=== PATIENT | male | born 1980 | race Caucasian/White ===

== ENCOUNTER 2023-09-28 07:37 | Emergency (ER) | payer OTHER ==
[2023-09-28 07:45] VITALS: RESP 18
[2023-09-28] MEDS: DEXAMETHASONE SOD PHOSPHATE 10 MG/ML 1 ML VIAL IM STA (08:10)
--- NOTE | 2023-09-28 08:18 | ED ---
ENT HPI - General Chief complaint: ENT Stated complaint: Allergies Time Seen by Provider: 09/28/23 07:46 Source: patient, family, RN notes reviewed Mode of arrival: ambulatory Limitations: no limitations - History of Present Illness Initial comments: This is a 43-year-old male who presents to the emergency department for problems with allergies. States that for the last couple of years he has had problems with sinus congestion and allergies around his eyes. He has been on Sudafed, Robitussin, and other [id number] allergy medications without much relief. He also followed up at [facility] and was given a prescription for antibiotics and nasal spray. States that he continues to have no relief. Denies any chest pain or shortness of breath. He does have nasal drainage in conjunction with the congestion. He was unable to get an appointment with his primary care provider until next month and is unsure what else he can take to help with the symptoms. - Related Data Previous Rx's Medication Instructions Recorded Cromolyn Sodium [NasalCrom] 1 spray NASAL QID #26 ml 09/28/23 Fexofenadine/Pseudoephedrine 1 tab PO BID #30 tab 09/28/23 [Laurel-D 12 Hour Tablet] Allergies Allergy/AdvReac Type Severity Reaction Status Date / Time No Known Allergies Allergy Verified 09/28/23 07:44 Review of Systems ROS Statement: Those systems with pertinent positive or pertinent negative responses have been documented in the HPI. ROS Other: All systems not noted in ROS Statement are negative. Past Medical History Past Medical History: No Reported History Past Surgical History: No Surgical Hx Reported Past Psychological History: No Psychological Hx Reported Smoking Status: Current some day smoker Past Alcohol Use History: Occasional Past Drug Use History: Marijuana General Exam Limitations: no limitations General appearance: alert, in no apparent distress Head exam: Present: atraumatic, normocephalic, normal inspection Eye exam: Present: normal appearance, PERRL, EOMI. Absent: scleral icterus, conjunctival injection, periorbital swelling ENT exam: Present: normal exam, normal oropharynx, mucous membranes moist, TM's normal bilaterally, normal external ear exam Respiratory exam: Present: normal lung sounds bilaterally. Absent: respiratory distress, wheezes, rales, rhonchi, stridor Cardiovascular Exam: Present: regular rate, normal rhythm, normal heart sounds. Absent: systolic murmur, diastolic murmur, rubs, gallop, clicks Neurological exam: Present: alert, oriented X3, CN II-XII intact Psychiatric exam: Present: normal affect, normal mood Skin exam: Present: warm, dry, intact, normal color. Absent: rash Course Vital Signs 09/28/23 09/28/23 07:40 08:25 Temperature 97.7 F 98 F Pulse Rate 67 68 Respiratory 18 18 Rate Blood Pressure 114/78 118/76 O2 Sat by Pulse 97 98 Oximetry Medical Decision Making - Medical Decision Making This is a 43 year old male who presents to the emergency department for allergy symptoms. Was pt. sent in by a medical professional or institution? @ -No Did you speak to anyone other than the patient for history? @ -No Did you review nursing and triage notes? @ -Yes, and I agree, it is accurate with regards to the patient's symptoms. Were old charts reviewed? @ -No Differential Diagnosis? @ -Differential allergies: Allergic rhinitis, viral syndrome, sinusitis, mononucleosis, this is not meant to be an all-inclusive list. EKG interpreted by me (3pts min.)? @ -Not obtained X-rays interpreted by me (1pt min.)? @ -Not obtained CT interpreted by me (1pt min.)? @ -Not obtained U/S interpreted by me (1pt. min.)? @ -Not obtained What testing was considered but not performed? (CT, X-rays, U/S, labs)? Why? @ -None What meds were considered but not given? Why? @ -None Did you discuss the management of the patient with other professionals? @ -No Did you reconcile home meds? @ -No Was smoking cessation discussed for >3mins.? @ -I discussed smoking cessation for greater than 3 minutes. The risk of smoking were discussed with the patient including but not limited to risks of cancer, stroke, coronary artery disease and COPD. Also discussed with patient were multiple methods of quitting smoking. Lastly we discussed the financial cost of smoking. Was critical care preformed (if so, how long)? @ -No Were there social determinants of health that impacted care today? How? (Homelessness, low income, unemployed, alcoholism, drug addiction, transportation, low edu. Level, literacy, decrease access to med. care, assisted, rehab)? @ -No Was there de-escalation of care discussed even if they declined? (Discuss DNR or withdrawal of care, Hospice)? @ -No What co-morbidities impacted this encounter? (DM, HTN, Smoking, COPD, CAD, Cancer, CVA, Hep., AIDS, mental health diagnosis, sleep apnea, morbid obesity)? @ -Smoking Was patient admitted / discharged? @ -Discharged. IM Decadron administered in the emergency department. He was also given Flonase nasal spray to go home with to continue using daily. Prescription for Laurel-D and cromolyn nasal spray provided with dosing instructions reviewed as well. We also discussed a Brittni pot or other [id number] sinus rinse to help with clearing out his sinuses. Otherwise advised follow-up with his PCP and potentially requesting a referral to an food counselor or ENT if symptoms persist. Undiagnosed new problem with uncertain prognosis? @ -None Drug Therapy requiring intensive monitoring for toxicity (Heparin, Nitro, Insulin, Cardizem)? @ -None Were any procedures done? @ -None Diagnosis/symptom? @ -Allergic rhinitis Acute, or Chronic, or Acute on Chronic? @ -Chronic Uncomplicated (without systemic symptoms) or Complicated (systemic symptoms)? @ -Uncomplicated Side effects of treatment? @ -None Exacerbation, Progression, or Severe Exacerbation] @ -Stable Poses a threat to life or bodily function? @ -No Return precautions reviewed in depth, the patient is instructed to return to the emergency department with any new, worsening, or concerning symptoms. Patient verbalized understanding. This case was discussed in detail with the attending ED physician, Dr. Bunch. Presentation, findings, and treatment plan discussed in detail as well. Disposition Clinical Impression: Allergic rhinitis, Nicotine dependence Disposition: HOME SELF-CARE Instructions (If sedation given, give patient instructions): Allergies (ED) Additional Instructions: Return to the emergency department with any new, worsening, or concerning symptoms. Take the Laurel twice daily consistently. Use the cromolyn nasal spray 3-4 times daily. Use the Flonase nasal spray as 2 sprays to each nostril twice daily for a week followed by 1 spray to each nostril daily thereafterwards. Also consider using a Brittni pot or other sinus rinse device. You can try contacting the food counselor listed below to see if they will see you as an ER follow-up patient. You can also try following up with ENT. Follow up with your primary care provider in 1-2 days. Prescriptions: Fexofenadine/Pseudoephedrine [Laurel-D 12 Hour Tablet] 1 tab PO BID #30 tab Cromolyn Sodium [NasalCrom] 1 spray NASAL QID #26 ml Is patient prescribed a controlled substance at d/c from ED?: No Referrals: Meme Malhotra MD [STAFF PHYSICIAN] - 1-2 days None,Stated [Primary Care Provider] - 1-2 days Tian Jordan MD [STAFF PHYSICIAN] - 1-2 days Time of Disposition: 08:18
[2023-09-28] MEDS: FLUTICASONE 50MCG/SPRAY NASAL 16GM EA NOSTRIL STA (08:23)
[2023-09-28 08:27] VITALS: BP 118/76; PULSE 68; TEMP 98
== END 2023-09-28 08:25 | disposition home or self-care (01) ==
LOC: EC 07:37
DX: J30.9 Allergic rhinitis, unspecified (principal); F17.200 Nicotine dependence, unspecified, uncomplicated; F12.90 Cannabis use, unspecified, uncomplicated
CPT/HCPCS: 99283; 96372; 99406; J1100

== ENCOUNTER 2023-12-13 06:53 | Emergency (ER) | payer MEDICARE, OTHER ==
[2023-12-13] MEDS: SODIUM CHLORIDE 0.9% 1,000 ML IV STA (07:33)
[2023-12-13] MEDS: SODIUM CHLORIDE 0.9% 500 ML 500 ML IV STA (07:34)
[2023-12-13 07:57] LABS: ALT 12 U/L (4-49); AST 21 U/L (17-59); African American GFR (CKD) >90 (>60 ml/min/1.73 sqM); Albumin 4.1 g/dL (3.5-5.0); Alkaline Phosphatase 65 U/L (38-126); Anion Gap 4 mmol/L; Blood Urea Nitrogen 14 mg/dL (9-20); Carbon Dioxide 26 mmol/L (22-30); Chloride 109 mmol/L (98-107); Glucose 94 mg/dL (74-99); Lipase 50 U/L (23-300); Non-African American GFR(CKD) 86 (>60 ml/min/1.73 sqM); Potassium 4.1 mmol/L (3.5-5.1); Sodium 139 mmol/L (137-145); Total Bilirubin 0.6 mg/dL (0.2-1.3); Total Protein 6.2 g/dL (6.3-8.2)
--- NOTE | 2023-12-13 08:39 | ED ---
Nausea/Vomiting/Diarrhea HPI - General Chief complaint: Nausea/Vomiting/Diarrhea Stated complaint: Diarrhea Time Seen by Provider: 12/13/23 07:00 Source: patient, RN notes reviewed Mode of arrival: ambulatory Limitations: no limitations - History of Present Illness Initial comments: 43-year-old male presents emergency department complaint of diarrhea x 1 week. Patient states that he did take some Imodium which stopped states soon as the medication wore off he had diarrhea again. Patient states he has minimal abdominal discomfort denies any significant vomiting fever chills no sick contacts no recent antibiotic use no traveling denies any change in food. Patient denies chest pain shortness of breath no history of bowel infections. - Related Data Previous Rx's Medication Instructions Recorded Cromolyn Sodium [NasalCrom] 1 spray NASAL QID #26 ml 09/28/23 Fexofenadine/Pseudoephedrine 1 tab PO BID #30 tab 09/28/23 [Laurel-D 12 Hour Tablet] Allergies Allergy/AdvReac Type Severity Reaction Status Date / Time No Known Allergies Allergy Verified 12/13/23 06:58 Review of Systems ROS Statement: Those systems with pertinent positive or pertinent negative responses have been documented in the HPI. ROS Other: All systems not noted in ROS Statement are negative. Past Medical History Past Medical History: No Reported History History of Any Multi-Drug Resistant Organisms: None Reported Past Surgical History: No Surgical Hx Reported Past Psychological History: No Psychological Hx Reported Smoking Status: Current some day smoker Past Alcohol Use History: Occasional Past Drug Use History: Marijuana General Exam Limitations: no limitations General appearance: alert, in no apparent distress Head exam: Present: atraumatic, normocephalic, normal inspection Eye exam: Present: normal appearance, PERRL, EOMI. Absent: scleral icterus, conjunctival injection, periorbital swelling ENT exam: Present: normal exam, normal oropharynx, mucous membranes moist Neck exam: Present: normal inspection, full ROM. Absent: tenderness, meningis mus, lymphadenopathy Respiratory exam: Present: normal lung sounds bilaterally. Absent: respiratory distress, wheezes, rales, rhonchi, stridor Cardiovascular Exam: Present: regular rate, normal rhythm, normal heart sounds. Absent: systolic murmur, diastolic murmur, rubs, gallop, clicks GI/Abdominal exam: Present: soft, normal bowel sounds. Absent: distended, tenderness, guarding, rebound, rigid Course Vital Signs 12/13/23 12/13/23 12/13/23 06:55 09:00 09:52 Temperature 98 F 98.1 F 98 F Pulse Rate 79 61 69 Respiratory 18 16 16 Rate Blood Pressure 114/78 106/70 110/84 O2 Sat by Pulse 96 98 98 Oximetry Medical Decision Making - Medical Decision Making Was pt. sent in by a medical professional or institution (, PA, LABOR RELATIONS TEACHER, urgent care, hospital, or skilled nursing...) When possible be specific @ -No Did you speak to anyone other than the patient for history (EMS, parent, family, police, friend...)? What history was obtained from this source @ -No Did you review nursing and triage notes (agree or disagree)? Why? @ -I reviewed and agree with nursing and triage notes Were old charts reviewed (outside hosp., previous admission, EMS record, old EKG, old radiological studies, urgent care reports/EKG's, skilled nursing records)? Report findings @ -No old charts were reviewed Differential Diagnosis (chest pain, altered mental status, abdominal pain women, abdominal pain men, vaginal bleeding, weakness, fever, dyspnea, syncope, headache, dizziness, GI bleed, back pain, seizure, CVA, palpatations, mental health, musculoskeletal)? @ -Differential Abdominal Pain Men: Appendicitis, cholecystitis, diverticulosis, ischemic bowel, pancreatitis, hepatitis, UTI, gastroenteritis, AAA, incarcerated hernia, bowel obstruction, constipation, inflammatory bowel, hepatitis, peptic ulcer disease, splenic infarction, perforated viscus, testicular torsion, this is not meant to be an all-inclusive list EKG interpreted by me (3pts min.). @ -None X-rays interpreted by me (1pt min.). @ -None done CT interpreted by me (1pt min.). @ -None done U/S interpreted by me (1pt. min.). @ -None done What testing was considered but not performed or refused? (CT, X-rays, U/S, labs)? Why? @ -None What meds were considered but not given or refused? Why? @ -None Did you discuss the management of the patient with other professionals (professionals i.e. , PA, LABOR RELATIONS TEACHER, lab, RT, psych nurse, social media senior associate, bar captain, t eacher, production officer, human services case manager)? Give summary @ -No Was smoking cessation discussed for >3mins.? @ -No Was critical care preformed (if so, how long)? @ -No Were there social determinants of health that impacted care today? How? (Homelessness, low income, unemployed, alcoholism, drug addiction, transportation, low edu. Level, literacy, decrease access to med. care, snf, rehab)? @ -No Was there de-escalation of care discussed even if they declined (Discuss DNR or withdrawal of care, Hospice)? DNR status @ -No What co-morbidities impacted this encounter? (DM, HTN, Smoking, COPD, CAD, Cance r, CVA, ARF, Chemo, Hep., AIDS, mental health diagnosis, sleep apnea, morbid obesity)? @ -None Was patient admitted / discharged? Hospital course, mention meds given and route, prescriptions, significant lab abnormalities, going to OR and other pertinent info. @ -Discharged patient has had diarrhea for 1 week patient does have elevated eosinophilic's, may be allergic or less likely parasitic. Patient will follow- up with GI for further testing return grams discussed. Undiagnosed new problem with uncertain prognosis? @ -No Drug Therapy requiring intensive monitoring for toxicity (Heparin, Nitro, Insulin, Cardizem)? @ -No Were any procedures done? @ -No Diagnosis/symptom? @ -Diarrhea Acute, or Chronic, or Acute on Chronic? @ -Acute Uncomplicated (without systemic symptoms) or Complicated (systemic symptoms)? @ -Complicated Side effects of treatment? @ -No Exacerbation, Progression, or Severe Exacerbation? @ -No Poses a threat to life or bodily function? How? (Chest pain, [place], [place], pneumonia, PE, COPD, DKA, ARF, appy, cholecystitis, CVA, Diverticulitis, Homicidal, Suicidal, threat to staff... and all critical care pts) @ -No - Lab Data Result diagrams: 12/13/23 07:40 12/13/23 07:40 Lab Results 12/13/23 12/13/23 Range/Units 07:40 07:40 WBC 9.5 (3.8-10.6) k/uL RBC 4.74 (4.30-5.90) m/uL Hgb 16.0 (13.0-17.5) gm/dL Hct 45.7 (39.0-53.0) % MCV 96.3 (80.0-100.0) fL MCH 33.6 (25.0-35.0) pg MCHC 34.9 (31.0-37.0) g/dL RDW 12.8 (11.5-15.5) % Plt Count 194 (150-450) k/uL MPV 10.4 Neutrophils % (Manual) 24 % Lymphocytes % (Manual) 25 % Monocytes % (Manual) 9 % Eosinophils % (Manual) 42 % Neutrophils # (Manual) 2.28 (1.3-7.7) k/uL Lymphocytes # (Manual) 2.38 (1.0-4.8) k/uL Monocytes # (Manual) 0.86 (0-1.0) k/uL Eosinophils # (Manual) 3.99 H (0-0.7) k/uL Nucleated RBCs 0 (0-0) /100 WBC Manual Slide Review Performed Sodium 139 (137-145) mmol/L Potassium 4.1 (3.5-5.1) mmol/L Chloride 109 H (98-107) mmol/L Carbon Dioxide 26 (22-30) mmol/L Anion Gap 4 mmol/L BUN 14 (9-20) mg/dL Creatinine 1.06 (0.66-1.25) mg/dL Est GFR (CKD-EPI)AfAm >90 (>60 ml/min/1.73 sqM) Est GFR (CKD-EPI)NonAf 86 (>60 ml/min/1.73 sqM) Glucose 94 (74-99) mg/dL Calcium 9.0 (8.4-10.2) mg/dL Magnesium 2.0 (1.6-2.3) mg/dL Total Bilirubin 0.6 (0.2-1.3) mg/dL AST 21 (17-59) U/L ALT 12 (4-49) U/L Alkaline Phosphatase 65 (38-126) U/L Total Protein 6.2 L (6.3-8.2) g/dL Albumin 4.1 (3.5-5.0) g/dL Lipase 50 (23-300) U/L Disposition Clinical Impression: Diarrhea Disposition: HOME SELF-CARE Condition: Stable Instructions (If sedation given, give patient instructions): Acute Diarrhea (ED) Additional Instructions: Please return to the Emergency Department if symptoms worsen or any other concerns. Is patient prescribed a controlled substance at d/c from ED?: No Referrals: None,Stated [Primary Care Provider] - 1-2 days Ashlee Toussaint MD [STAFF PHYSICIAN] - 1-2 days Time of Disposition: 09:29
[2023-12-13 08:53] LABS: HCT 45.7 % (39.0-53.0); MCH 33.6 pg (25.0-35.0); MCHC 34.9 g/dL (31.0-37.0); MCV 96.3 fL (80.0-100.0); Mean Platelet Volume 10.4; Platelet Count 194 k/uL (150-450); RBC 4.74 m/uL (4.30-5.90); RDW 12.8 % (11.5-15.5); WBC 9.5 k/uL (3.8-10.6)
[2023-12-13 09:20] LABS: Eosinophils # (M) 3.99 k/uL (0-0.7); Lymphocytes # (M) 2.38 k/uL (1.0-4.8); Monocytes # (M) 0.86 k/uL (0-1.0); Neutrophils # (M) 2.28 k/uL (1.3-7.7); Neutrophils % (M) 24 %; Nucleated Red Blood Cells 0 /100 WBC (0-0); Total Cells Counted 100
[2023-12-13 09:26] VITALS: RESP 16
[2023-12-13] MEDS: DIPHENOX-ATROP STARTER PACK 8 TAB BTL PO STA (09:46)
[2023-12-13 09:55] VITALS: BP 110/84; PULSE 69; TEMP 98
== END 2023-12-13 09:54 | disposition home or self-care (01) ==
LOC: EC 06:53
CPT/HCPCS: 36415; 80053; 83690; 83735; 85025; 96360; 99284